=== PATIENT | female | born 1990 | race African-American/Black ===

== ENCOUNTER 2017-07-12 10:37 | Emergency (ER) | payer OTHER ==
[~2017-07-12] VITALS: Ht 165.1 cm; Wt 90.3 kg
[2017-07-12 10:55] VITALS: BP 139/84
[2017-07-12] MEDS ORDERED: HYDR25TA PO (11:25)
--- NOTE | 2017-07-12 11:28 | PHYS DOC ---
Past Medical History Past Medical History: No Pertinent History Past Surgical History: No Surgical History Alcohol Use: Occasionally Drug Use: Marijuana Adult General Chief Complaint Chief Complaint: SKIN RASH/ABSCESS HPI HPI Patient is a 26 year old female presents to the ED complaining of rash to abdomen and lower extremities. Denies pain. States it itches really bad. Rates as 02/14. States benadryl at home improves the symptoms. No new soaps, lotions or detergents. Denies tongue swelling, Difficulty swallowing, chest pain, shortness of breath, fever, nausea/vomiting, headache. Review of Systems Review of Systems Constitutional: Denies fever or chills [] Eyes: Denies change in visual acuity, redness, or eye pain [] HENT: Denies nasal congestion or sore throat [] Respiratory: Denies cough or shortness of breath [] Cardiovascular: No additional information not addressed in HPI [] GI: Denies abdominal pain, nausea, vomiting, bloody stools or diarrhea [] : Denies dysuria or hematuria [] Musculoskeletal: Denies back pain or joint pain [] Integument: Denies rash or skin lesions [] Neurologic: Denies headache, focal weakness or sensory changes [] Endocrine: Denies polyuria or polydipsia [] All other systems were reviewed and found to be within normal limits, except as documented in this note. Allergies Allergies Allergies Coded Allergies Type Severity Reaction Last Updated Verified No Known Drug Allergies 07/12/17 No Physical Exam Physical Exam Constitutional: Well developed, well nourished, no acute distress, non-toxic appearance. [] HENT: Normocephalic, atraumatic, oropharynx moist Cardiovascular:Heart rate regular rhythm, no murmur [] Lungs & Thorax: Bilateral breath sounds clear to auscultation [] Skin: Warm, dry, no erythema, no rash visible.[] Neurologic: Alert and oriented X 3, normal motor function, normal sensory function, no focal deficits noted. [] Psychologic: Affect normal, judgement normal, mood normal. [] Current Patient Data Vital Signs Vital Signs Date Time Temp Pulse Resp B/P (MAP) Pulse Ox O2 Delivery O2 Flow Rate FiO2 07/12/17 10:55 98.6 73 16 100 Room Air 98.6 Lab Values Laboratory Tests Test 07/12/17 11:41 POC Urine HCG, Qualitative Hcg negative (Negative) EKG EKG [] Radiology/Procedures Radiology/Procedures [] Course & Med Decision Making Course & Med Decision Making Pertinent Labs and Imaging studies reviewed. (See chart for details) []Normal exam. Discussed symptomatic treatment at home and dry skin. Will prescribe hydroxyzine. Discussed follow-up with dermatology in 1-2 days. Provided contact information/education. Discussed reasons to return to the ED. Patient understands and agrees with plan. Dragon Disclaimer Dragon Disclaimer This electronic medical record was generated, in whole or in part, using a voice recognition dictation system. Departure Departure Impression: Primary Impression: Generalized pruritus Disposition: HOME, SELF-CARE Condition: STABLE Referrals: NO PCP (PCP) CHELSEA JIMENEZ MD Patient Instructions: Pruritus Scripts Hydroxyzine Hcl (HYDROXYZINE HCL) 25 Mg Tablet 25 MG PO TID, #14 TAB Prov: VAUGHN ALEXANDRE 07/12/17 VAUGHN ALEXANDRE Jul 12, 2017 11:28
== END 2017-07-12 11:43 | disposition home or self-care (01) ==
LOC: ER 10:37
DX: L29.9 Pruritus, unspecified (principal); F12.10 Cannabis abuse, uncomplicated
CPT/HCPCS: 81025; 99283

== ENCOUNTER 2018-10-28 20:07 | Emergency (ER) | payer MEDICAID, OTHER ==
[~2018-10-28] VITALS: Ht 167.6 cm; Wt 90.3 kg
[~2018-10-28 20:07] MED LIST: HYDR25TA PO
[2018-10-28 20:38] VITALS: BP 106/63
[2018-10-28 20:44] LABS: BILIRUBIN,URINE NEGATIVE (NEG); CLARITY,URINE CLEAR; COLOR,URINE YELLOW; NITRITE,URINE NEGATIVE (NEG); PH,URINE 5.5; PROTEIN,URINE NEGATIVE (NEG-TRACE)
[2018-10-28 20:53] LABS: SQUAMOUS EPITHELIAL CELL,UR MANY /LPF
[2018-10-28 20:54] LABS: BACTERIA,URINE MODERATE /HPF (0-FEW); WBC,URINE OCC /HPF (0-4)
[2018-10-28 21:13] LABS: INFLUENZA A PATIENT NEGATIVE (NEGATIVE); INFLUENZA B PATIENT NEGATIVE (NEGATIVE)
--- NOTE | 2018-10-28 21:18 | PHYS DOC ---
Past Medical History Past Medical History: No Pertinent History ([facility],VALARIE M NURSE COORDINATOR) Past Surgical History: No Surgical History ([facility],VALARIE NURSE COORDINATOR) Alcohol Use: Occasionally Drug Use: Marijuana ([facility],VALARIE NURSE COORDINATOR) Adult General Chief Complaint Chief Complaint: NAUSEA/VOMITING/DIARRHA HPI HPI Patient is a 28 year old female who presents with vomiting times one day states she has vomited today too many times to count. Denies fever or body aches , diarrhea, abdominal pain, cough, congestion, dysuria, shortness of air, chest pain, headache. Patient has no pain at this time. ([facility],VALARIE NURSE COORDINATOR) Review of Systems Review of Systems Constitutional: Denies fever or chills [] Eyes: Denies change in visual acuity, redness, or eye pain [] HENT: Denies nasal congestion or sore throat [] Respiratory: Denies cough or shortness of breath [] Cardiovascular: No additional information not addressed in HPI [] GI: Denies abdominal pain, + nausea, + vomiting, denies bloody stools or diarrhea [] : Denies dysuria or hematuria [] Musculoskeletal: Denies back pain or joint pain [] Integument: Denies rash or skin lesions [] Neurologic: Denies headache, focal weakness or sensory changes [] All other systems were reviewed and found to be within normal limits, except as documented in this note. ([facility],VALARIE NURSE COORDINATOR) Allergies Allergies Allergies Coded Allergies Type Severity Reaction Last Updated Verified No Known Drug Allergies 07/12/17 No (CELINE KATE MD) Physical Exam Physical Exam Constitutional: Well developed, well nourished, no acute distress, non-toxic appearance. [] HENT: Normocephalic, atraumatic, bilateral external ears normal, oropharynx moist, no oral exudates, nose normal. [] Eyes: PERRLA, EOMI, conjunctiva normal, no discharge. [] Neck: Normal range of motion, no tenderness, supple, no stridor. [] Cardiovascular:Heart rate regular rhythm, no murmur [] Lungs & Thorax: Bilateral breath sounds clear to auscultation [] Abdomen: Bowel sounds normal, soft, no tenderness, no masses, no pulsatile masses. [] Skin: Warm, dry, no erythema, no rash. [] Back: No tenderness, no CVA tenderness. [] Extremities: No tenderness, no cyanosis, no clubbing, ROM intact, no edema. [] Neurologic: Alert and oriented X 3, normal motor function, normal sensory function, no focal deficits noted. [] Psychologic: Affect normal, judgement normal, mood normal. Normal physical exam[] (VALARIE FARMER APRN) Current Patient Data Vital Signs Vital Signs Date Time Temp Pulse Resp B/P (MAP) Pulse Ox O2 Delivery O2 Flow Rate FiO2 10/28/18 20:38 98.2 70 16 106/63 (77) 100 Room Air 98.2 (CELINE KATE MD) Lab Values Laboratory Tests Test 10/28/18 20:25 10/28/18 20:26 10/28/18 20:43 Urine Collection Type Unknown Urine Color Yellow Urine Clarity Clear Urine pH 5.5 Urine Specific [place] 1.025 Urine Protein Negative mg/dL (NEG-TRACE) Urine Glucose (UA) Negative mg/dL (NEG) Urine Ketones (Stick) Negative mg/dL (NEG) Urine Blood Negative (NEG) Urine Nitrite Negative (NEG) Urine Bilirubin Negative (NEG) Urine Urobilinogen Dipstick 1.0 mg/dL (0.2 mg/dL) Urine Leukocyte Esterase Negative (NEG) Urine RBC 3-5 /HPF (0-2) Urine WBC Occ /HPF (0-4) Urine Squamous Epithelial Cells Many /LPF Urine Bacteria Moderate /HPF (0-FEW) Urine Mucus Marked /LPF POC Urine HCG, Qualitative Hcg negative (Negative) Influenza Type A Antigen Negative (NEGATIVE) Influenza Type B Antigen Negative (NEGATIVE) Microbiology 10/28/18 Urine Culture - Final, Complete 10/28/18 Urine Culture Result 1 (YAW) - Final, Complete (CELINE KATE MD) EKG EKG [] (VALARIE FARMER APRN) Radiology/Procedures Radiology/Procedures [] (VALARIE FARMER APRN) Course & Med Decision Making Course & Med Decision Making Patient is a 28 year old female who presents with vomiting times one day states she has vomited today too many times to count. Denies fever or body aches , diarrhea, abdominal pain, cough, congestion, dysuria, shortness of air, chest pain, headache. Patient has no pain at this time. Alert and oriented. Skin pink warm and dry. Mucous membranes are moist. Lungs are clear to auscultation all lobes. Right ear is reddened. Abdomen is soft and nontender. Throat is pink and without exudates or swelling. Urine is negative. Speaks in full clear sentences. Ambulatory with steady gait. Urinalysis shows no infection. Rapid flu is negative. is negative. Patient be discharged home with an antibiotic for a right-sided ear infection and nausea medication. Patient follow-up primary care provider this coming week. (VALARIE FARMER APRN) Course & Med Decision Making ` Staff Physician Addendum: I was working in the ER during the course of this patient's visit. I was available for consultation as needed, but I was not directly involved in the care of this patient. (CELINE KATE MD) Dragon Disclaimer Dragon Disclaimer This electronic medical record was generated, in whole or in part, using a voice recognition dictation system. (VALARIE FARMER APRN) Departure Departure Impression: Primary Impression: Otitis media Additional Impression: Nausea & vomiting Disposition: 01 HOME, SELF-CARE Condition: STABLE Referrals: NO PCP (PCP) Patient Instructions: Nausea and Vomiting, Otitis Media, Adult Additional Instructions: Take medication as prescribed. Drink plenty of fluids. Do not eat any heavy meals start with light foods. Follow-up with your primary care provider this coming up week. Scripts Ondansetron (ONDANSETRON ODT) 4 Mg Tab.rapdis 1 TAB PO PRN Q6-8HRS, #20 TAB Prov: VALARIE FARMER APRN 10/28/18 Azithromycin (AZITHROMYCIN TABLET) 250 Mg Tablet 1 PKG PO UD, #6 TAB Prov: VALARIE FARMER APRN 10/28/18 Problem Qualifiers Primary Impression: Otitis media Otitis media type: unspecified Laterality: right Qualified Codes: H66.91 - Otitis media, unspecified, right ear Additional Impression: Nausea & vomiting Vomiting type: unspecified Vomiting Intractability: non-intractable Qualified Codes: R11.2 - Nausea with vomiting, unspecified VALARIE FARMER APRN Oct 28, 2018 21:18 CELINE KATE MD Nov 06, 2018 09:53
[2018-10-28] MEDS ORDERED: AZIT250T6 PO (21:24)
[2018-10-28] MEDS ORDERED: ONDA4TAB12 PO (21:24)
== END 2018-10-28 21:40 | disposition home or self-care (01) ==
LOC: ER 20:07
DX: R11.2 Nausea with vomiting, unspecified (principal); H66.91 Otitis media, unspecified, right ear
CPT/HCPCS: 81001; 81025; 87086; 87804; 99283

== ENCOUNTER 2018-11-20 16:51 | Emergency (ER) | payer MEDICAID ==
[~2018-11-20] VITALS: Ht 167.6 cm; Wt 90.7 kg
[~2018-11-20 16:51] MED LIST changes: +AZIT250T6 PO; +ONDA4TAB12 PO
[2018-11-20 17:11] VITALS: BP 122/73
[2018-11-20 17:23] LABS: BILIRUBIN,URINE NEGATIVE (NEG); CLARITY,URINE CLOUDY; COLOR,URINE YELLOW; NITRITE,URINE POSITIVE (NEG); PROTEIN,URINE 100 mg/dL (NEG-TRACE)
--- NOTE | 2018-11-20 17:28 | PHYS DOC ---
Past Medical History Past Medical History: No Pertinent History Past Surgical History: No Surgical History Alcohol Use: Occasionally Drug Use: Marijuana Adult General Chief Complaint Chief Complaint: FLANK PAIN HPI HPI Patient is a 28 year old female presents to the ED complaining of dysuria 2 days. Patient states that today she woke up and had some blood in her urine as well. States she thinks she has a urinary tract infection. Describes the pain as burning. Rates the pain as 5 out of 10. Denies flank pain, fever, chills, nausea/vomiting, chest pain, shortness of breath, abdominal pain, vaginal discharge/bleeding or headache. Review of Systems Review of Systems Constitutional: Denies fever or chills [] Eyes: Denies change in visual acuity, redness, or eye pain [] HENT: Denies nasal congestion or sore throat [] Respiratory: Denies cough or shortness of breath [] Cardiovascular: No additional information not addressed in HPI [] GI: Denies abdominal pain, nausea, vomiting, bloody stools or diarrhea [] : Complains of dysuria and hematuria. Musculoskeletal: Denies back pain or joint pain [] Integument: Denies rash or skin lesions [] Neurologic: Denies headache, focal weakness or sensory changes [] All other systems were reviewed and found to be within normal limits, except as documented in this note. Current Medications Current Medications Current Medications Medications (Trade) Dose Ordered Sig/Tal Start Time Stop Time Status Last Admin Dose Admin Ceftriaxone Sodium (Rocephin Im) 1 gm 1X ONCE 11/20/18 17:45 11/20/18 17:46 DC 11/20/18 18:13 1 GM Allergies Allergies Allergies Coded Allergies Type Severity Reaction Last Updated Verified No Known Drug Allergies 07/12/17 No Physical Exam Physical Exam Constitutional: Well developed, well nourished, no acute distress, non-toxic appearance. [] HENT: Normocephalic, atraumatic Cardiovascular:Heart rate regular rhythm, no murmur [] Lungs & Thorax: Bilateral breath sounds clear to auscultation [] Abdomen: Bowel sounds normal, soft, no tenderness, no masses, no pulsatile masses. [] Skin: Warm, dry, no erythema, no rash. [] Back: No tenderness, no CVA tenderness. [] Neurologic: Alert and oriented X 3, normal motor function, normal sensory function, no focal deficits noted. [] Psychologic: Affect normal, judgement normal, mood normal. [] Current Patient Data Vital Signs Vital Signs Date Time Temp Pulse Resp B/P (MAP) Pulse Ox O2 Delivery O2 Flow Rate FiO2 11/20/18 17:11 98.2 86 16 122/73 (89) 99 Room Air 98.2 Lab Values Laboratory Tests Test 11/20/18 17:05 11/20/18 17:09 Urine Collection Type Unknown Urine Color Yellow Urine Clarity Cloudy Urine pH 6.0 Urine Specific [place] 1.015 Urine Protein 100 mg/dL (NEG-TRACE) Urine Glucose (UA) Negative mg/dL (NEG) Urine Ketones (Stick) Negative mg/dL (NEG) Urine Blood Large (NEG) Urine Nitrite Positive (NEG) Urine Bilirubin Negative (NEG) Urine Urobilinogen Dipstick 1.0 mg/dL (0.2 mg/dL) Urine Leukocyte Esterase Large (NEG) Urine RBC 20-40 /HPF (0-2) Urine WBC Tntc /HPF (0-4) Urine Squamous Epithelial Cells Mod /LPF Urine Bacteria Many /HPF (0-FEW) Urine Mucus Slight /LPF POC Urine HCG, Qualitative Hcg negative (Negative) EKG EKG [] Radiology/Procedures Radiology/Procedures [] Course & Med Decision Making Course & Med Decision Making Pertinent Labs and Imaging studies reviewed. (See chart for details) []Will treat for urinary tract infection with Rocephin in the ED and outpatient and Keflex. Discussed symptomatic treatment, Pyridium use and follow-up this week. Discussed reasons to return to the ED. Patient understands and agrees with plan. Dragon Disclaimer Dragon Disclaimer This electronic medical record was generated, in whole or in part, using a voice recognition dictation system. Departure Departure Impression: Primary Impression: Urinary tract infection Disposition: HOME, SELF-CARE Condition: IMPROVED Referrals: NO PCP (PCP) ANDRÉS MONSIVAIS MD Patient Instructions: Urinary Tract Infection Scripts Phenazopyridine Hcl (PYRIDIUM) 200 Mg Tablet 200 MG PO TID for 3 Days, #9 TAB Prov: VAUGHN ALEXANDRE 11/20/18 Cephalexin (KEFLEX) 500 Mg Capsule 1 CAP PO TID for 7 Days, #21 CAP Prov: VAUGHN ALEXANDRE 11/20/18 VAUGHN ALEXANDRE Nov 20, 2018 17:28
[2018-11-20 17:32] LABS: BACTERIA,URINE MANY /HPF (0-FEW); RBC,URINE 20-40 /HPF (0-2); SQUAMOUS EPITHELIAL CELL,UR MOD /LPF; WBC,URINE TNTC /HPF (0-4)
[2018-11-20] MEDS ORDERED: cefTRIAXone IM 1 GM VIAL IM ONE (17:45)
[2018-11-20] MEDS ORDERED: PHEN-318 PO (18:00)
[2018-11-20] MEDS ORDERED: CEPH-264 PO (18:00)
== END 2018-11-20 18:16 | disposition home or self-care (01) ==
LOC: ER 16:51
DX: N39.0 Urinary tract infection, site not specified (principal)
CPT/HCPCS: 81001; 81025; 96372; 99283; J0696

== ENCOUNTER 2019-01-31 12:14 | Emergency (ER) | payer MEDICAID ==
[~2019-01-31] VITALS: Ht 170.2 cm; Wt 81.6 kg
[~2019-01-31 12:14] MED LIST changes: +CEPH-264 PO; +PHEN-318 PO
[2019-01-31 12:44] VITALS: BP 110/73
--- NOTE | 2019-01-31 13:14 | PHYS DOC ---
Past Medical History Past Medical History: No Pertinent History Past Surgical History: No Surgical History Alcohol Use: None Drug Use: None Adult General Chief Complaint Chief Complaint: VAGINAL BLEEDING [facility] HPI Patient is a 28 year old female who presents with vaginal spotting that started this morning. Patient states that this is her first . Estimated she is 6 to 8 week. States her pain is 1 out of 10 and crampy. Has not tried any interventions prior to arrival. There is bleeding when she wipes. Review of Systems Review of Systems Constitutional: Denies fever or chills [] Eyes: Denies change in visual acuity, redness, or eye pain [] HENT: Denies nasal congestion or sore throat [] Respiratory: Denies cough or shortness of breath [] Cardiovascular: No additional information not addressed in HPI [] GI: Denies abdominal pain, nausea, vomiting, bloody stools or diarrhea [] : Denies dysuria or hematuria. Report vaginal spotting. Musculoskeletal: Denies back pain or joint pain [] Integument: Denies rash or skin lesions [] Neurologic: Denies headache, focal weakness or sensory changes [] Endocrine: Denies polyuria or polydipsia [] Complete systems were reviewed and found to be within normal limits, except as documented in this note. Current Medications Current Medications Current Medications Medications (Trade) Dose Ordered Sig/[facility] Start Time Stop Time Status Last Admin Dose Admin Sodium Chloride 1,000 ml @ 1,000 mls/hr Q1H 01/31/19 13:30 01/31/19 14:43 DC 01/31/19 13:27 1,000 MLS/HR Allergies Allergies Allergies Coded Allergies Type Severity Reaction Last Updated Verified No Known Drug Allergies 07/12/17 No Physical Exam Physical Exam Constitutional: Well developed, well nourished, no acute distress, non-toxic appearance. [] HENT: Normocephalic, atraumatic, bilateral external ears normal, oropharynx moist, no oral exudates, nose normal. [] Eyes: PERRLA, EOMI, conjunctiva normal, no discharge. [] Neck: Normal range of motion, no tenderness, supple, no stridor. [] Cardiovascular:Heart rate regular rhythm, no murmur [] Lungs & Thorax: Bilateral breath sounds clear to auscultation [] Abdomen: Bowel sounds normal, soft, no tenderness, no masses, no pulsatile masses. [] Skin: Warm, dry, no erythema, no rash. [] Back: No tenderness, no CVA tenderness. [] Extremities: No tenderness, no cyanosis, no clubbing, ROM intact, no edema. [] Neurologic: Alert and oriented X 3, normal motor function, normal sensory function, no focal deficits noted. [] Psychologic: Affect normal, judgement normal, mood normal. [] Current Patient Data Vital Signs Vital Signs Date Time Temp Pulse Resp B/P (MAP) Pulse Ox O2 Delivery O2 Flow Rate FiO2 01/31/19 12:44 98.1 59 18 110/73 (85) 100 Room Air 98.1 Lab Values Laboratory Tests Test 01/31/19 12:35 01/31/19 12:40 01/31/19 13:23 Urine Collection Type Unknown Urine Color [place] Urine Clarity Cloudy Urine pH 6.0 Urine Specific [place] >=1.030 Urine Protein Negative mg/dL (NEG-TRACE) Urine Glucose (UA) Negative mg/dL (NEG) Urine Ketones (Stick) Trace mg/dL (NEG) Urine Blood Large (NEG) Urine Nitrite Negative (NEG) Urine Bilirubin Negative (NEG) Urine Urobilinogen Dipstick 1.0 mg/dL (0.2 mg/dL) Urine Leukocyte Esterase Negative (NEG) Urine RBC 1-2 /HPF (0-2) Urine WBC Occ /HPF (0-4) Urine Squamous Epithelial Cells Many /LPF Urine Bacteria Mod /HPF (0-FEW) Urine Mucus Marked /LPF POC Urine HCG, Qualitative Hcg positive (Negative) White Blood Count 11.8 x10^3/uL (4.0-11.0) H Red Blood Count 4.06 x10^6/uL (3.50-5.40) Hemoglobin 13.6 g/dL (12.0-15.5) Hematocrit 39.9 % (36.0-47.0) Mean Corpuscular Volume 99 fL (79-100) Mean Corpuscular Hemoglobin 34 pg (25-35) Mean Corpuscular Hemoglobin Concent 34 g/dL (31-37) Red Cell Distribution Width 14.0 % (11.5-14.5) Platelet Count 303 x10^3/uL (140-400) Neutrophils (%) (Auto) 62 % (31-73) Lymphocytes (%) (Auto) 26 % (24-48) Monocytes (%) (Auto) 7 % (0-9) Eosinophils (%) (Auto) 4 % (0-3) H Basophils (%) (Auto) 1 % (0-3) Neutrophils # (Auto) 7.3 x10^3uL (1.8-7.7) Lymphocytes # (Auto) 3.1 x10^3/uL (1.0-4.8) Monocytes # (Auto) 0.9 x10^3/uL (0.0-1.1) Eosinophils # (Auto) 0.5 x10^3/uL (0.0-0.7) Basophils # (Auto) 0.1 x10^3/uL (0.0-0.2) Sodium Level 138 mmol/L (136-145) Potassium Level 4.1 mmol/L (3.5-5.1) Chloride Level 103 mmol/L (98-107) Carbon Dioxide Level 24 mmol/L (21-32) Anion Gap 11 (6-14) Blood Urea Nitrogen 6 mg/dL (7-20) L Creatinine 0.7 mg/dL (0.6-1.0) Estimated GFR (Cockcroft-Gault) 120.6 BUN/Creatinine Ratio 9 (6-20) Glucose Level 91 mg/dL (70-99) Calcium Level 9.1 mg/dL (8.5-10.1) Total Bilirubin 0.4 mg/dL (0.2-1.0) Aspartate Amino Transferase (AST) 16 U/L (15-37) Alanine Aminotransferase (ALT) 27 U/L (14-59) Alkaline Phosphatase 56 U/L (46-116) Total Protein 6.7 g/dL (6.4-8.2) Albumin 3.8 g/dL (3.4-5.0) Albumin/Globulin Ratio 1.3 (1.0-1.7) Laboratory Tests 01/31/19 13:23 Laboratory Tests 01/31/19 13:23 EKG EKG [] Radiology/Procedures Radiology/Procedures []PATIENT: NICOLASA MARTINEZ MACCOUNT: [id number]#: [id number] : 1990 LOCATION: ER AGE: 28 SEX: F EXAM STATUS: REG ER ORD. PHYSICIAN: ANDRÉS BARTHOLOMEW APRN REASON: vaginal bleeding PROCEDURE: OB <14 WKS W/TV OB ultrasound less than 14 weeks to include transabdominal and transvaginal imaging 01/31/2019 CLINICAL HISTORY: First trimester with vaginal bleeding. TECHNIQUE: Using the distended urinary bladder as a sonographic window, a real-time examination of the pelvis was performed. Additionally in an attempt to better evaluate the uterus and adnexa, a transvaginal ultrasound study was performed. Multiple images were obtained. FINDINGS: A gestational sac is seen within the body/fundus of the uterus. Within this gestational sac an embryonic pole is seen. The CRL of this embryonic pole measures 1.0 cm. This corresponds to an estimated gestational age by ultrasound of 7 weeks 1 day plus or minus a standard deviation of 4 days. Embryonic cardiac activity is seen with a heart rate of 139 bpm. The amniotic fluid volume is within normal limits. The placenta is not yet developed. The uterus is otherwise within normal limits. Both ovaries are within normal limits in size and echogenicity. The right ovary measures 3.9 x 1.9 x 1.6 cm in size. The left ovary measures 3.2 x 2.5 x 1.8 cm in size. No adnexal mass is seen. No free fluid is noted. IMPRESSION: Single living IUP with an estimated gestational age by ultrasound of 7 weeks 1 day plus or minus a standard deviation of 4 days. The estimated date of delivery by ultrasound is 09/18/2019. Electronically signed by: Clovis Mason MD (01/31/2019 2:30 PM) [id number] Course & Med Decision Making Course & Med Decision Making Pertinent Labs and Imaging studies reviewed. (See chart for details) Will get Ultrasound, labs, and give fluids. Ultrasound shows living fetus with FHT in 130's. Labs are unremarkable. Will d/c home to follow up with OB. Tuan Disclaimer Tuan Disclaimer This electronic medical record was generated, in whole or in part, using a voice recognition dictation system. Departure Departure Impression: Primary Impression: Vaginal spotting Disposition: HOME, SELF-CARE Condition: STABLE Referrals: AMELIA VIGIL MD (PCP) Patient Instructions: Vaginal Bleeding During , [id number], Vaginal Bleeding During , First Trimester Additional Instructions: Thank you for visiting [facility]. We appreciate you trusting us with your care. If any additional problems come up don't hesitate to return to visit us. Please follow up with your primary care provider so they can plan roman tional care if needed and know about the problem that you had. If symptoms worsen come back to the Emergency Department. Any concerning symptoms that start such as chest pain, shortness of Air, weakness or numbness on one side of the body, running high fevers or any other concerning symptoms return to the ER. Please follow up with OB concerning symptoms. ANDRÉS BARTHOLOMEW APRN Jan 31, 2019 13:14
[2019-01-31] MEDS ORDERED: IV NORMAL SALINE 1000ML BAG 1,000 ML IV SCH (13:30)
[2019-01-31 13:41] LABS: BILIRUBIN,URINE NEGATIVE (NEG); CLARITY,URINE CLOUDY; COLOR,URINE AMBER; NITRITE,URINE NEGATIVE (NEG); PROTEIN,URINE NEGATIVE (NEG-TRACE)
[2019-01-31 13:47] LABS: BASO # 0.1 x10^3/uL (0.0-0.2); BASO % 1 % (0-3); EOS # 0.5 x10^3/uL (0.0-0.7); EOS % 4 % (0-3); HEMATOCRIT 39.9 % (36.0-47.0); HEMOGLOBIN 13.6 g/dL (12.0-15.5); LYMPH # 3.1 x10^3/uL (1.0-4.8); LYMPH % 26 % (24-48); MEAN CORPUSCULAR HEMOGLOBIN 34 pg (25-35); MEAN CORPUSCULAR HGB CONC 34 g/dL (31-37); MEAN CORPUSCULAR VOLUME 99 fL (79-100); MONO # 0.9 x10^3/uL (0.0-1.1); MONO % 7 % (0-9); NEUT # 7.3 x10^3uL (1.8-7.7); NEUT % 62 % (31-73); PLATELET COUNT 303 x10^3/uL (140-400); RED BLOOD COUNT 4.06 x10^6/uL (3.50-5.40); WHITE BLOOD COUNT 11.8 x10^3/uL (4.0-11.0)
[2019-01-31 13:59] LABS: SQUAMOUS EPITHELIAL CELL,UR MANY /LPF
[2019-01-31 14:00] LABS: BACTERIA,URINE MOD /HPF (0-FEW); WBC,URINE OCC /HPF (0-4)
[2019-01-31 14:27] LABS: CALCIUM 9.1 mg/dL (8.5-10.1); CREATININE 0.7 mg/dL (0.6-1.0); GFR 120.6; POTASSIUM 4.1 mmol/L (3.5-5.1)
--- NOTE | 2019-01-31 14:33 | RAD ---
OB ultrasound less than 14 weeks to include transabdominal and transvaginal imaging 01/31/2019 CLINICAL HISTORY: First trimester with vaginal bleeding. TECHNIQUE: Using the distended urinary bladder as a sonographic window, a real-time examination of the pelvis was performed. Additionally in an attempt to better evaluate the uterus and adnexa, a transvaginal ultrasound study was performed. Multiple images were obtained. FINDINGS: A gestational sac is seen within the body/fundus of the uterus. Within this gestational sac an embryonic pole is seen. The CRL of this embryonic pole measures 1.0 cm. This corresponds to an estimated gestational age by ultrasound of 7 weeks 1 day plus or minus a standard deviation of 4 days. Embryonic cardiac activity is seen with a heart rate of 139 bpm. The amniotic fluid volume is within normal limits. The placenta is not yet developed. The uterus is otherwise within normal limits. Both ovaries are within normal limits in size and echogenicity. The right ovary measures 3.9 x 1.9 x 1.6 cm in size. The left ovary measures 3.2 x 2.5 x 1.8 cm in size. No adnexal mass is seen. No free fluid is noted. IMPRESSION: Single living IUP with an estimated gestational age by ultrasound of 7 weeks 1 day plus or minus a standard deviation of 4 days. The estimated date of delivery by ultrasound is 09/18/2019. Electronically signed by: Clovis Mason MD (01/31/2019 2:30 PM) [id number]
[2019-01-31 14:34] LABS: ALBUMIN 3.8 g/dL (3.4-5.0); ALBUMIN/GLOBULIN RATIO 1.3 (1.0-1.7); TOTAL BILIRUBIN 0.4 mg/dL (0.2-1.0); TOTAL PROTEIN 6.7 g/dL (6.4-8.2)
== END 2019-01-31 15:01 | disposition home or self-care (01) ==
LOC: ER 12:14
DX: O26.851 Spotting complicating pregnancy, first trimester (principal); Z3A.01 Less than 8 weeks gestation of pregnancy
CPT/HCPCS: 36415; 76801; 76817; 80053; 81001; 81025; 84702; 85025; 86850; 86900; 86901; 99285; J7030

== ENCOUNTER → 2019-06-26 | Outpatient (CLI) | payer MEDICAID ==
[2019-06-26 10:47] LABS: BASO % 0 % (0-3); EOS # 0.3 x10^3/uL (0.0-0.7); EOS % 3 % (0-3); HEMATOCRIT 34.1 % (36.0-47.0); HEMOGLOBIN 11.8 g/dL (12.0-15.5); LYMPH # 2.1 x10^3/uL (1.0-4.8); LYMPH % 19 % (24-48); MEAN CORPUSCULAR HEMOGLOBIN 34 pg (25-35); MEAN CORPUSCULAR HGB CONC 35 g/dL (31-37); MEAN CORPUSCULAR VOLUME 97 fL (79-100); MONO # 0.8 x10^3/uL (0.0-1.1); MONO % 8 % (0-9); NEUT # 7.7 x10^3/uL (1.8-7.7); NEUT % 71 % (31-73); PLATELET COUNT 280 x10^3/uL (140-400); RED BLOOD COUNT 3.52 x10^6/uL (3.50-5.40); RED CELL DISTRIBUTION WIDTH 13.6 % (11.5-14.5)
== END | disposition home or self-care (01) ==
LOC: LAB 09:17
PROVIDERS: ATTEND Obstetrics & Gynecology
DX: O09.93 Supervision of high risk pregnancy, unspecified, third trimester (principal); O44.43 Low lying placenta NOS or without hemorrhage, third trimester
CPT/HCPCS: 36415; 82950; 85025

== ENCOUNTER → 2019-06-29 | Outpatient (CLI) | payer MEDICAID ==
--- NOTE | 2019-06-29 14:35 | KCIC ---
EXAM: Obstetrics sonogram. HISTORY: Low lying placenta follow-up. TECHNIQUE: Sonographic imaging of a gravid uterus was performed. COMPARISON: 01/31/2019. FINDINGS: There is a single intrauterine fetus in cephalic presentation with a normal heart rate of 140 bpm. There is an anterior placenta without evidence of placenta previa. The anatomic fluid index is normal at 16.9 cm. The cervix is closed and measures 4.0 cm in length. The biparietal diameter is 7.62 cm, corresponding with 30 weeks and 4 days. The head circumference is 27.82 cm, corresponding with 30 weeks and 3 days. The abdominal circumference is 25.15 cm, corresponding with 29 weeks and 2 days. The femoral length is 5.74 cm, corresponding with 30 weeks and 1 day. The estimated gestational age based on combined ultrasound measurements is 30 weeks and 1 day and the estimated weight is 1454 g. This corresponds with the 38th percentile The estimated due date is 09/06/2019. The anatomy is not formally assessed on this exam. IMPRESSION: 1. Single intrauterine fetus with an estimated gestational age of 30 weeks and 1 day and heart rate of 140 bpm. 2. No evidence of a low-lying placenta or placenta previa. Electronically signed by: Maryan Islas MD (06/29/2019 2:32 PM) [place] [id number]
== END | disposition home or self-care (01) ==
LOC: KCIC US 10:35
PROVIDERS: ATTEND Obstetrics & Gynecology
DX: O44.43 Low lying placenta NOS or without hemorrhage, third trimester (principal); Z3A.30 30 weeks gestation of pregnancy
CPT/HCPCS: 76815

== ENCOUNTER 2019-07-12 10:48 | Emergency (ER) | payer MEDICAID ==
[~2019-07-12] VITALS: Ht 167.6 cm; Wt 82.8 kg
[2019-07-12] MEDS ORDERED: ONDANSETRON PF 4 MG/2 ML VIAL. IV ONE (12:45)
[2019-07-12] MEDS ORDERED: IV NORMAL SALINE 1000ML BAG 1,000 ML IV ONE (12:45)
[2019-07-12 12:52] LABS: BASO # 0.1 x10^3/uL (0.0-0.2); BASO % 1 % (0-3); EOS # 0.5 x10^3/uL (0.0-0.7); EOS % 4 % (0-3); HEMATOCRIT 32.6 % (36.0-47.0); HEMOGLOBIN 10.9 g/dL (12.0-15.5); LYMPH # 1.8 x10^3/uL (1.0-4.8); LYMPH % 15 % (24-48); MEAN CORPUSCULAR HEMOGLOBIN 32 pg (25-35); MEAN CORPUSCULAR HGB CONC 34 g/dL (31-37); MEAN CORPUSCULAR VOLUME 97 fL (79-100); MONO # 1.1 x10^3/uL (0.0-1.1); MONO % 9 % (0-9); NEUT # 8.6 x10^3/uL (1.8-7.7); NEUT % 71 % (31-73); PLATELET COUNT 265 x10^3/uL (140-400); RED BLOOD COUNT 3.36 x10^6/uL (3.50-5.40); RED CELL DISTRIBUTION WIDTH 13.3 % (11.5-14.5); WHITE BLOOD COUNT 12.1 x10^3/uL (4.0-11.0)
[2019-07-12 13:36] LABS: CALCIUM 8.3 mg/dL (8.5-10.1); CREATININE 0.6 mg/dL (0.6-1.0); POTASSIUM 3.5 mmol/L (3.5-5.1)
[2019-07-12 13:38] VITALS: BP 98/55
[2019-07-12 13:42] LABS: ALBUMIN 2.4 g/dL (3.4-5.0); ALBUMIN/GLOBULIN RATIO 0.6 (1.0-1.7); TOTAL BILIRUBIN 0.2 mg/dL (0.2-1.0); TOTAL PROTEIN 6.1 g/dL (6.4-8.2)
[2019-07-12] MEDS ORDERED: ONDA4TAB11 PO (14:12)
--- NOTE | 2019-07-12 14:13 | PHYS DOC ---
Past Medical History Past Medical History: No Pertinent History Past Surgical History: No Surgical History Additional Information: 2 cigarettes daily Alcohol Use: None Drug Use: None Adult General Chief Complaint Chief Complaint: COUGH HPI HPI Patient is a 28 year old female who presents to the emergency department with complaints of a cough with posttussive emesis 4, and diarrhea 4 in the last 24 hours. Patient states that she has been sick for the last 4 days. Patient states that she has not felt short of breath until today. She was seen by her MANAGER STYLE yesterday and told to go the emergency room if she does not get any better. Patient complains of chest congestion, nasal congestion, shortness of breath with coughing, fatigue and generalized body aches. She denies any blood in her vomit or stool. Patient reports that she does feel movement. She states she is 32 weeks gestation with a due date of September 06, 2018, patient is unable to recall her LMP. Currently she rates her discomfort a 5 out of 10 on the pain scale and describes the pain is aching, she denies any alleviating or exacerbating factors. Pt denies any irregular vaginal bleeding, irregular vaginal discharge, hematuria, or contraction-like pain. She also denies any fever, wheezing, sore throat, headache, rash, lower extremity swelling, low back pain, dysuria, increased urinary frequency, dizziness, or syncope. All other ROS is neg unless otherwise noted in HPI. Review of Systems Review of Systems See Above Current Medications Current Medications Current Medications Medications (Trade) Dose Ordered Sig/Tal Start Time Stop Time Status Last Admin Dose Admin Ondansetron HCl (Zofran) 4 mg 1X ONCE 07/12/19 12:45 07/12/19 12:46 DC 07/12/19 13:05 4 MG Sodium Chloride 1,000 ml @ 1,000 mls/hr 1X ONCE 07/12/19 12:45 07/12/19 13:44 DC 07/12/19 13:05 1,000 MLS/HR Allergies Allergies Allergies Coded Allergies Type Severity Reaction Last Updated Verified No Known Drug Allergies 07/12/17 No Physical Exam Physical Exam Constitutional: Well developed, well nourished, no acute distress, non-toxic appearance. [] HENT: Normocephalic, atraumatic, bilateral external ears normal, oropharynx moist, no oral exudates, nose normal. [] Eyes: PERRLA, EOMI, conjunctiva normal, no discharge. [] Neck: Normal range of motion, no tenderness, supple, no stridor. [] Cardiovascular:Heart rate regular rhythm, no murmur [] Lungs & Thorax: Bilateral breath sounds clear to auscultation [] Abdomen: Bowel sounds normal, , palpable fundus, soft, no tenderness, no masses, no pulsatile masses, palpable movement [] Skin: Warm, dry, no erythema, no rash. [] Back: No CVA tenderness. [] Extremities: No cyanosis, no clubbing, ROM intact, no edema. [] Neurologic: Alert and oriented X 3, no focal deficits noted. [] Psychologic: Affect normal, judgement normal, mood normal. [] Current Patient Data Vital Signs Vital Signs Date Time Temp Pulse Resp B/P (MAP) Pulse Ox O2 Delivery O2 Flow Rate FiO2 07/12/19 13:38 84 18 98/55 (69) 94 Room Air 07/12/19 11:10 98.5 98.5 Lab Values Laboratory Tests Test 07/12/19 12:41 07/12/19 13:20 07/12/19 14:07 White Blood Count 12.1 x10^3/uL (4.0-11.0) H Red Blood Count 3.36 x10^6/uL (3.50-5.40) L Hemoglobin 10.9 g/dL (12.0-15.5) L Hematocrit 32.6 % (36.0-47.0) L Mean Corpuscular Volume 97 fL (79-100) Mean Corpuscular Hemoglobin 32 pg (25-35) Mean Corpuscular Hemoglobin Concent 34 g/dL (31-37) Red Cell Distribution Width 13.3 % (11.5-14.5) Platelet Count 265 x10^3/uL (140-400) Neutrophils (%) (Auto) 71 % (31-73) Lymphocytes (%) (Auto) 15 % (24-48) L Monocytes (%) (Auto) 9 % (0-9) Eosinophils (%) (Auto) 4 % (0-3) H Basophils (%) (Auto) 1 % (0-3) Neutrophils # (Auto) 8.6 x10^3/uL (1.8-7.7) H Lymphocytes # (Auto) 1.8 x10^3/uL (1.0-4.8) Monocytes # (Auto) 1.1 x10^3/uL (0.0-1.1) Eosinophils # (Auto) 0.5 x10^3/uL (0.0-0.7) Basophils # (Auto) 0.1 x10^3/uL (0.0-0.2) Sodium Level 139 mmol/L (136-145) Potassium Level 3.5 mmol/L (3.5-5.1) Chloride Level 106 mmol/L (98-107) Carbon Dioxide Level 24 mmol/L (21-32) Anion Gap 9 (6-14) Blood Urea Nitrogen 4 mg/dL (7-20) L Creatinine 0.6 mg/dL (0.6-1.0) Estimated GFR (Cockcroft-Gault) 144.0 BUN/Creatinine Ratio 7 (6-20) Glucose Level 71 mg/dL (70-99) Calcium Level 8.3 mg/dL (8.5-10.1) L Total Bilirubin 0.2 mg/dL (0.2-1.0) Aspartate Amino Transferase (AST) 15 U/L (15-37) Alanine Aminotransferase (ALT) 11 U/L (14-59) L Alkaline Phosphatase 66 U/L (46-116) Total Protein 6.1 g/dL (6.4-8.2) L Albumin 2.4 g/dL (3.4-5.0) L Albumin/Globulin Ratio 0.6 (1.0-1.7) L Urine Color [place] Urine Clarity Cloudy Urine pH 6.5 Urine Specific [place] 1.025 Urine Protein Negative mg/dL (NEG-TRACE) Urine Glucose (UA) Negative mg/dL (NEG) Urine Ketones (Stick) 15 mg/dL (NEG) Urine Blood Negative (NEG) Urine Nitrite Negative (NEG) Urine Bilirubin Negative (NEG) Urine Urobilinogen Dipstick 1.0 mg/dL (0.2 mg/dL) Urine Leukocyte Esterase Negative (NEG) Urine RBC 0 /HPF (0-2) Urine WBC 1-4 /HPF (0-4) Urine Squamous Epithelial Cells Mod /LPF Urine Bacteria Few /HPF (0-FEW) Urine Mucus Mod /LPF Laboratory Tests 07/12/19 12:41 Laboratory Tests 07/12/19 13:20 EKG EKG [] Radiology/Procedures Radiology/Procedures [] Course & Med Decision Making Course & Med Decision Making Pertinent Labs and Imaging studies reviewed. (See chart for details) Patient is a 28-year-old female who presented to the emergency room with complaints of nausea, vomiting, diarrhea, cough, and shortness of breath. With exam movement was palpable, the patient was given 1 L of normal saline, 4 mg of Zofran, reported feeling better after these medications. Patient was asymptomatic with orthostatic blood pressures. CBC revealed a white blood cell count 12.1, a 10.9, hematocrit 32.6 otherwise unremarkable; CMP revealed a calcium of 8.3, was otherwise unremarkable; patient's UA revealed a white blood cell count of 1-4 however there are moderate squamous cells and patient was asymptomatic. Her vital signs were stable throughout her stay. The patient was discharged home with a prescription for Zofran and URI instructions. She is encouraged follow clear liquid diet for the next 24 hours then advance to bland foods and as tolerated. Follow-up with her primary care doctor this week. Return to the ER if symptoms worsen. Patient verbalized an understanding of home care, medications, follow-up, and return to ED instructions and was in agreement with the plan of care. [] Dragon Disclaimer Dragon Disclaimer This electronic medical record was generated, in whole or in part, using a voice recognition dictation system. Departure Departure Impression: Primary Impression: Nausea & vomiting Additional Impression: URI (upper respiratory infection) Disposition: 01 HOME, SELF-CARE Condition: STABLE Referrals: SAVAGE NOLASCO Jr, MD (PCP) Patient Instructions: Nausea and Vomiting, [id number], Upper Respiratory Infection, Adult, [id number] Additional Instructions: Fill prescription(s) and use as directed. Recommend use of a Cool mist humidifier in room at bedtime. Alternate Tylenol or ibuprofen as needed for pain/fever. Avoid airway triggers such as smoke, fragrance, dust, and pollen. May take [id number] cough suppressants as needed. Recommend clear fluids for the next 24 hours. Then you may advance to bland foods such as bananas, rice, applesauce, and dry toast. Follow-up with your primary care doctor in the next 1-2 days. Return to the emergency room if your symptoms worsen. Follow-up with your primary care doctor if symptoms persist, return to the ER if symptoms worsen. Scripts Ondansetron Hcl (ONDANSETRON HCL) 4 Mg Tablet 1 TAB PO PRN Q6HRS PRN for NAUSEA/VOMITING for 3 Days, #10 TAB 0 Refills Prov: LEEANN ANGLIN PIER HAND 07/12/19 Problem Qualifiers Primary Impression: Nausea & vomiting Vomiting type: unspecified Vomiting Intractability: non-intractable Fantasma lified Codes: R11.2 - Nausea with vomiting, unspecified Additional Impression: URI (upper respiratory infection) URI type: unspecified URI Qualified Codes: J06.9 - Acute upper respiratory infection, unspecified LEEANN ANGLIN PIER HAND Jul 12, 2019 14:12
[2019-07-12 14:19] LABS: BILIRUBIN,URINE NEGATIVE (NEG); CLARITY,URINE CLOUDY; COLOR,URINE AMBER; NITRITE,URINE NEGATIVE (NEG); PH,URINE 6.5; PROTEIN,URINE NEGATIVE (NEG-TRACE)
[2019-07-12 14:39] LABS: BACTERIA,URINE FEW /HPF (0-FEW); RBC,URINE 0 /HPF (0-2); SQUAMOUS EPITHELIAL CELL,UR MOD /LPF
== END 2019-07-12 14:24 | disposition home or self-care (01) ==
LOC: ER 10:48
DX: O21.9 Vomiting of pregnancy, unspecified (principal); O99.513 Diseases of the respiratory system complicating pregnancy, third trimester; J06.9 Acute upper respiratory infection, unspecified; Z3A.32 32 weeks gestation of pregnancy; F17.210 Nicotine dependence, cigarettes, uncomplicated
CPT/HCPCS: 36415; 80053; 81001; 85025; 96361; 96374; 99284; J2405; J7030